=== PATIENT | female | born 1995 | race Two or more races ===

== ENCOUNTER → 2017-12-07 | Outpatient (CLI) | payer OTHER ==
[2017-12-07 16:27] LABS: Specimen Source URINE
[2017-12-08 11:26] LABS: Source Urine
== END | disposition home or self-care (01) ==
LOC: LAB 16:25
PROVIDERS: Family Medicine
DX: Z11.3 Encounter for screening for infections with a predominantly sexual mode of transmission (principal)
CPT/HCPCS: 87491; 87591

== ENCOUNTER → 2018-08-29 | Outpatient (CLI) | payer OTHER | END | disposition home or self-care (01) | LOC: LAB EV 18:13 → LAB SHORT 18:13 | DX: J02.9 Acute pharyngitis, unspecified (principal) | CPT/HCPCS: 87070 ==

== ENCOUNTER → 2018-12-24 | Outpatient (CLI) | payer OTHER | END | disposition home or self-care (01) | LOC: LAB SHORT 15:17 → LAB 15:17 | DX: N39.0 Urinary tract infection, site not specified (principal) | CPT/HCPCS: 87077; 87086; 87186 ==

== ENCOUNTER → 2018-12-26 | Outpatient (CLI) | payer OTHER ==
[2018-12-28 23:06] LABS: CHLAMYDIA TRACHOMATIS, NAA Negative (Negative); NEISSERIA GONORRHOEAE, NAA Negative (Negative)
== END | disposition home or self-care (01) ==
LOC: LAB 15:56 → LAB SHORT 15:56
PROVIDERS: Nurse Practitioner Family
DX: Z11.3 Encounter for screening for infections with a predominantly sexual mode of transmission (principal)
CPT/HCPCS: 87491; 87591

== ENCOUNTER → 2020-01-05 | Outpatient (CLI) | payer OTHER ==
[2020-01-05 15:46] LABS: BASOPHILS ABSOLUTE AUTO 0.03 K/mm3 (0.00-0.23); BASOPHILS PERCENT AUTO 0 % (0-2); EOSINOPHILS ABSOLUTE AUTO 0.11 K/mm3 (0.00-0.68); EOSINOPHILS PERCENT AUTO 2 % (0-6); Hematocrit 43.4 % (33.0-51.0); Hemoglobin 14.6 g/dL (11.5-16.0); IMMATURE GRAN ABSOLUTE AUTO 0.01 K/mm3 (0.00-0.10); IMMATURE GRAN PERCENT AUTO 0 % (0-1); LYMPHOCYTES ABSOLUTE AUTO 2.19 K/mm3 (0.84-5.20); LYMPHOCYTES PERCENT AUTO 31 % (21-46); MONOCYTES ABSOLUTE AUTO 0.61 K/mm3 (0.16-1.47); MONOCYTES PERCENT AUTO 9 % (4-13); Mean Corpuscular HGB 30.5 pg (26.0-34.0); Mean Corpuscular HGB Conc 33.6 g/dL (31.5-36.5); Mean Corpuscular Volume 91 fL (80-100); Mean Platelet Volume 9.9 fL (9.1-12.4); NEUTROPHILS ABSOLUTE AUTO 4.07 K/mm3 (1.96-9.15); NEUTROPHILS PERCENT AUTO 58 % (41-73); Platelet Count 304 K/mm3 (150-400); RDW Coefficient Variation 12.7 % (11.7-14.2); RDW Standard Deviation 41.7 fL (35.1-46.3); Red Blood Cell Count 4.79 M/mm3 (3.80-5.20); White Blood Cell Count 7.02 K/mm3 (4.00-11.30)
== END | disposition home or self-care (01) ==
LOC: LAB EV 15:43 → LAB SHORT 15:43
PROVIDERS: Physician Assistant
DX: R10.2 Pelvic and perineal pain (principal); M54.9 Dorsalgia, unspecified
CPT/HCPCS: 84702; 85025

== ENCOUNTER → 2020-03-01 | Outpatient (CLI) | payer OTHER ==
[2020-03-04 01:10] LABS: CHLAMYDIA TRACHOMATIS, NAA Negative (Negative); NEISSERIA GONORRHOEAE, NAA Negative (Negative)
== END | disposition home or self-care (01) ==
LOC: LAB 14:41 → LAB SHORT 14:41
PROVIDERS: Obstetrics & Gynecology
DX: Z36.89 Encounter for other specified antenatal screening (principal)
CPT/HCPCS: 87491; 87591; G0123

== ENCOUNTER → 2020-08-12 | Outpatient (CLI) | payer OTHER | LOC: LAB 15:39 → LAB SHORT 15:39 | DX: Z11.3 Encounter for screening for infections with a predominantly sexual mode of transmission (principal) | CPT/HCPCS: 86803 ==

== ENCOUNTER → 2020-08-16 | Outpatient (CLI) | payer OTHER ==
[~2020-08-16] MED LIST: ACET500 PO; IBUP800 PO; PRENATAL TABLE1 EAC2; ROXICODONE5 MG PO
[2020-08-16 17:46] LABS: Source, Urine Clean Catch
[2020-08-16 19:35] LABS: Appearance, Urine Clear (Clear); Bilirubin, Urine Neg (Neg); Blood, Urine 1+ (Neg); Color, Urine Yellow (P-Yellow); Glucose Qualitative, Urine Neg (Neg); Ketones, Urine Neg (Neg); Leukocyte Esterase, Urine 3+ (Neg); Nitrite, Urine Neg (Neg); Protein, Urine Neg (Neg); Specific Gravity, Urine 1.005 (1.003-1.022); Urobilinogen, Urine NORM (Normal)
[2020-08-16 19:48] LABS: Red Blood Cells, Urine 0-2 /hpf (0-2); White Blood Cells, Urine 25-50 /hpf (0-5); Yeast/Fungi Urine Few /hpf
[2020-08-16 19:49] LABS: Bacteria Mod /hpf; Squamous Epithelial Cells Few /hpf (Few)
== END ==
LOC: LAB SHORT 15:20 → LAB 15:20
PROVIDERS: Advanced Practice Midwife
DX: Z34.03 Encounter for supervision of normal first pregnancy, third trimester (principal)
CPT/HCPCS: 81001; 87086

== ENCOUNTER 2020-09-01 10:10 | Inpatient (IN) | payer OTHER ==
[~2020-09-01] VITALS: Ht 142.2 cm; Wt 65.0 kg
[2020-09-01 10:47] LABS: BASOPHILS ABSOLUTE AUTO 0.03 K/mm3 (0.00-0.23); BASOPHILS PERCENT AUTO 0 % (0-2); EOSINOPHILS ABSOLUTE AUTO 0.17 K/mm3 (0.00-0.68); EOSINOPHILS PERCENT AUTO 2 % (0-6); Hematocrit 38.3 % (33.0-51.0); Hemoglobin 12.6 g/dL (11.5-16.0); IMMATURE GRAN ABSOLUTE AUTO 0.03 K/mm3 (0.00-0.10); IMMATURE GRAN PERCENT AUTO 0 % (0-1); LYMPHOCYTES ABSOLUTE AUTO 2.39 K/mm3 (0.84-5.20); LYMPHOCYTES PERCENT AUTO 27 % (21-46); MONOCYTES ABSOLUTE AUTO 0.47 K/mm3 (0.16-1.47); MONOCYTES PERCENT AUTO 5 % (4-13); Mean Corpuscular HGB 28.3 pg (26.0-34.0); Mean Corpuscular HGB Conc 32.9 g/dL (31.5-36.5); Mean Corpuscular Volume 86 fL (80-100); NEUTROPHILS ABSOLUTE AUTO 5.62 K/mm3 (1.96-9.15); NEUTROPHILS PERCENT AUTO 65 % (41-73); Platelet Count 284 K/mm3 (150-400); RDW Coefficient Variation 15.9 % (11.7-14.2); RDW Standard Deviation 49.5 fL (35.1-46.3); Red Blood Cell Count 4.46 M/mm3 (3.80-5.20); White Blood Cell Count 8.71 K/mm3 (4.00-11.30)
[2020-09-01] MEDS ORDERED: PRENATAL TABLE1 EAC2 (11:14)
--- NOTE | 2020-09-01 11:17 | NUR ---
pt states that she considered suicide when she was 14 years old, and was prescribed antidepressants with good results. Telephone call to Agata Bashir CNM by Leon Tracey RN to clear to low risk.
--- NOTE | 2020-09-02 11:38 | NUR ---
09/02/20 1138 Savanna Coleman 1129 DELIVERY VIABLE FEMALE INFANT WEIGHT 3285GM 7# 40Z, HEAD 13.775 INCHES, CHEST 13 INCHES, LENGTH 20 INCHES, APGARS 9/9 UMBILCA CORD SEGMENT SENT WITH RT FOR CORD GASES, UMBILCAL CORD BLOOD COLLECTED AND GIVEN TO RN FOR TYPE AND RH
[2020-09-02 11:43] LABS: PCO2 Cord - Arterial 73.6 mmHg (40-50); pH Cord - Arterial 7.19 (7.28-7.35)
[2020-09-02 11:45] LABS: PO2 Cord - Venous 37.7 mmHg (28-32); pH Umbilical Cord - Venous 7.32 (7.26-7.35)
[2020-09-02 11:46] LABS: PO2 Cord - Arterial < 13 mmHg (16-20)
--- NOTE | 2020-09-02 16:17 | NUR ---
REPORT TO FAUSTINO OCONNELL
--- NOTE | 2020-09-02 16:39 | NUR ---
Report received from FAUSTINO Quiros, assumed care of pt.
[2020-09-03 06:05] LABS: Hematocrit 28.6 % (33.0-51.0); Hemoglobin 9.2 g/dL (11.5-16.0); Mean Corpuscular HGB 27.8 pg (26.0-34.0); Mean Corpuscular HGB Conc 32.2 g/dL (31.5-36.5); Mean Corpuscular Volume 86 fL (80-100); Mean Platelet Volume 11.3 fL (9.1-12.4); Platelet Count 221 K/mm3 (150-400); RDW Coefficient Variation 16.4 % (11.7-14.2); RDW Standard Deviation 51.5 fL (35.1-46.3); Red Blood Cell Count 3.31 M/mm3 (3.80-5.20); White Blood Cell Count 12.23 K/mm3 (4.00-11.30)
--- NOTE | 2020-09-03 14:00 | NUR ---
PT CALLED AFTER TAKING A NAP, FC WAS REMOVED AT 1130. GOING TO TRY TO SHOWER. PT UNSURE OF HER LEGS, MOVED PT INTO ROLLING CHAIR AND MOVED TRO BATHROOM. WAS ABLE TO VOID LARGE AMOUNT. BED LINEN CHANGED, PT DECLINES SHOWER AT THIS TIME. ORAL CARE DONE, ANAMARIA CARE DONE WITH RN ASSIST.
--- NOTE | 2020-09-03 16:21 | NUR ---
RN ROUNDED TO HELP W/ . INSTRUCTED PT ON CORRECT POSITIONING/LATCHING, NIPPLE SHAPE AFTER FEEDS, EARLY FEEDING QUES, AND FREQUENCY OF FEEDS. INSTRUCTED IN SUPPLY AND DEMAND OF . PT VERBALIZED UNDERSTANDING, DENIES ANY FURTHER QUESTIONS OR CONCERNS.
[2020-09-04] MEDS ORDERED: IBUP800 PO (09:23)
[2020-09-04] MEDS ORDERED: ACET500 PO (09:24)
[2020-09-04] MEDS ORDERED: ROXICODONE5 MG PO (09:24)
--- NOTE | 2020-09-04 13:12 | NUR ---
MOTHER GIVEN WRITTEN AND VERBAL DC INSTRUCTIONS. WILL FOLLOW UP SUNDAY FOR PPFU HERE AT 1100 WELL SUNDAY AT 0930 FOR ADDITIONAL HELP. WILL FOLLOW UP WITH Sara CAR WITHIN 2 WEEKS. JOSE, AIDA CRebeccaITabby IV DC.D
== END 2020-09-04 14:10 | disposition home or self-care (01) | DRG 788 ==
LOC: OBS 10:10 → BC 10:13 → OBS 10:27 → BC 23:45
PROVIDERS: Obstetrics & Gynecology; ADMIT Advanced Practice Midwife
PROC: 3E0P7VZ Introduction of Hormone into Female Reproductive, Via Natural or Artificial Opening (ICD-10-PCS; 2020-09-01)
PROC: 3E033VJ Introduction of Other Hormone into Peripheral Vein, Percutaneous Approach (ICD-10-PCS; 2020-09-02)
PROC: 00HU33Z Insertion of Infusion Device into Spinal Canal, Percutaneous Approach (ICD-10-PCS; 2020-09-02)
PROC: 3E0R3BZ Introduction of Anesthetic Agent into Spinal Canal, Percutaneous Approach (ICD-10-PCS; 2020-09-02)
PROC: 10D00Z1 Extraction of Products of Conception, Low, Open Approach (ICD-10-PCS; principal; 2020-09-02 12:00)
DX: O48.0 Post-term pregnancy (principal); O76 Abnormality in fetal heart rate and rhythm complicating labor and delivery; O33.9 Maternal care for disproportion, unspecified; O99.824 Streptococcus B carrier state complicating childbirth; Z20.828 Contact with and (suspected) exposure to other viral communicable diseases; O62.1 Secondary uterine inertia; Z3A.40 40 weeks gestation of pregnancy; Z37.0 Single live birth; O77.0 Labor and delivery complicated by meconium in amniotic fluid
CPT/HCPCS: 36415; 51702; 82803; 85025; 85027; 86850; 86900; 86901; A9270; J0171; J0290; J0690; J1885; J2001; J2370; J2405; J2590; J2765; J3010; J7120; U0003

== ENCOUNTER → 2020-09-27 | Outpatient (CLI) | payer OTHER | END | disposition home or self-care (01) | LOC: LAB 12:32 → LAB SHORT 12:32 | DX: O90.0 Disruption of cesarean delivery wound (principal) | CPT/HCPCS: 87070; 87075; 87077; 87186; 87205 ==

== ENCOUNTER 2021-02-18 19:31 | Emergency (ER) | payer OTHER ==
[~2021-02-18] VITALS: Ht 142.2 cm; Wt 63.5 kg
[2021-02-18] MEDS ORDERED: AVIANE-28 TABL1 EACH PO (20:21)
[2021-02-18 20:51] LABS: Source, Urine Clean Catch
[2021-02-18 20:55] LABS: Appearance, Urine Hazy (Clear); Bilirubin, Urine Neg (Neg); Blood, Urine 3+ (Neg); Color, Urine Yellow (P-Yellow); Glucose Qualitative, Urine Neg (Neg); Ketones, Urine Neg (Neg); Leukocyte Esterase, Urine 1+ (Neg); Nitrite, Urine Pos (Neg); Protein, Urine 2+ (Neg); Specific Gravity, Urine 1.015 (1.003-1.022); Urobilinogen, Urine NORM (Normal); pH, Urine 6.5 (5.0-8.0)
[2021-02-18 21:14] LABS: Bacteria Many /hpf; Squamous Epithelial Cells Few /hpf (Few); White Blood Cells, Urine 25-50 /hpf (0-5)
[2021-02-18] MEDS ORDERED: CEFP200 PO (22:01)
== END 2021-02-18 22:13 | disposition home or self-care (01) ==
LOC: ER 19:31
PROVIDERS: Physician Assistant
DX: N12 Tubulo-interstitial nephritis, not specified as acute or chronic (principal); S39.012A Strain of muscle, fascia and tendon of lower back, initial encounter
CPT/HCPCS: 81001; 81025; 87077; 87086; 87186; 96372; 99283-25; A9270; J1885